=== PATIENT | male | born 1980 | race Caucasian/White ===

== ENCOUNTER 2018-08-09 09:26 | Outpatient (CLI) | payer BC ==
[2018-08-09] MEDS ORDERED: HYDR-3237 PO (10:01)
[2018-08-09] MEDS ORDERED: CYCL-259 PO (10:01)
== END 2018-08-09 23:59 | disposition home or self-care (01) ==
LOC: STAR 09:26
PROVIDERS: ATTEND Orthopaedic Surgery
DX: Z02.9 Encounter for administrative examinations, unspecified (principal)

== ENCOUNTER 2018-08-14 13:00 | Day surgery (SDC) | payer BC ==
[~2018-08-14] VITALS: Ht 177.8 cm; Wt 88.2 kg
[~2018-08-14 13:00] MED LIST: CYCL-259 PO; HYDR-3237 PO
[2018-08-14 13:22] VITALS: BP 117/79
[2018-08-14] MEDS ORDERED: LACTATED RINGERS 1,000 ML IV SCH (13:26)
[2018-08-14] MEDS ORDERED: SCOPOLAMINE PATCH, 1.5MG PATCH.TD72 TD ONE (13:30)
[2018-08-14] MEDS ORDERED: GABAPENTIN 300 MG CAPSULE PO ONE (13:30)
[2018-08-14] MEDS ORDERED: PROMETHAZINE 25 MG/ML, 1ML IV PRN (13:30)
[2018-08-14] MEDS ORDERED: DIAZEPAM 5 MG TABLET PO ONE (13:30)
[2018-08-14] MEDS ORDERED: DIAZEPAM 5 MG/ML, 2ML IVPush PRN (13:30)
[2018-08-14] MEDS ORDERED: FENTANYL PF 100 MCG/2ML IV PRN (13:30)
[2018-08-14] MEDS ORDERED: HYDROmorphone 2 MG/ML, 1ML IVPush PRN (13:30)
[2018-08-14] MEDS ORDERED: hydrALAzine 20 MG/ML, 1ML IV PRN (13:30)
[2018-08-14] MEDS ORDERED: ALBUTEROL/IPRATROPIUM 2.5MG/0.5MG, 3 ML NPPB PRN (13:30)
[2018-08-14] MEDS ORDERED: ONDANSETRON 2MG/ML, 2ML IV PRN (13:30)
[2018-08-14] MEDS ORDERED: MEPERIDINE/PF 25MG/0.5ML IVPush PRN (13:30)
[2018-08-14] MEDS ORDERED: ACETAMINOPHEN 500 MG TABLET PO ONE (13:30)
[2018-08-14] MEDS ORDERED: OXYcodone 5 MG/5 ML ORAL.SOL UDC PO PRN (13:30)
[2018-08-14] MEDS ORDERED: MIDAZOLAM 1 MG/ML, 2ML IV PRN (13:30)
[2018-08-14] MEDS ORDERED: FENTANYL PF 250 MCG/5ML ONE (13:44)
[2018-08-14] MEDS ORDERED: MIDAZOLAM 1 MG/ML, 2ML ONE (13:44)
[2018-08-14] MEDS ORDERED: BUPIVACAINE/PF 0.5% ONE (13:44)
[2018-08-14] MEDS ORDERED: BUPIVACAINE/PF 0.25% ONE (14:12)
[2018-08-14] MEDS ORDERED: EPINEPHRINE 1 MG/ML, 1ML ONE (14:13)
[2018-08-14] MEDS ORDERED: ONDANSETRON 2MG/ML, 2ML ONE (16:11)
[2018-08-14] MEDS ORDERED: CEFAZOLIN 1,000 MG ONE (16:11)
[2018-08-14] MEDS ORDERED: DEXAMETHASONE 4 MG/ML, 1ML ONE (16:11)
[2018-08-14] MEDS ORDERED: PROPOFOL 10 MG/ML, 20ML ONE (16:11)
[2018-08-14] MEDS ORDERED: LIDOCAINE-MPF 2% ,5ML ONE (16:11)
[2018-08-14] MEDS ORDERED: KETOROLAC 30 MG/1 ML ONE (16:11)
== END 2018-08-14 18:25 | disposition home or self-care (01) ==
LOC: OUT 13:00
PROVIDERS: ATTEND Orthopaedic Surgery
DX: S46.211A Strain of muscle, fascia and tendon of other parts of biceps, right arm, initial encounter (principal); X58.XXXA Exposure to other specified factors, initial encounter; Y93.89 Activity, other specified; Y92.89 Other specified places as the place of occurrence of the external cause; Y99.8 Other external cause status
CPT/HCPCS: 24342; 64415; J0171; J0690; J1100; J1885; J2250; J2405; J2704; J3010; J3490; J7120